=== PATIENT | male | born 1960 | race Caucasian/White ===

== ENCOUNTER → 2016-07-23 | Outpatient (CLI) | payer BC | LOC: GMAB 10:42 | PROVIDERS: ATTEND Family Medicine | DX: Z00.00 Encounter for general adult medical examination without abnormal findings (principal) ==

== ENCOUNTER 2016-10-22 05:56 | Day surgery (SDC) | payer BC ==
[~2016-10-22 05:56] MED LIST: LACTATED RINGERS 1,000 ML ONE
--- NOTE | 2016-10-22 09:49 | OP ---
DATE OF PROCEDURE: 10/22/16 PREOPERATIVE DIAGNOSIS: 1. 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 POSTOPERATIVE DIAGNOSIS: 1. Tattoo adjacent to polypectomy scar in descending colon without residual polyp. 2. Internal hemorrhoids. PROCEDURE: 1. Colonoscopy. SURGEON: Luigi Montague MD. SEDATION: Monitored anesthesia care. ESTIMATED BLOOD LOSS: 0 mL. PROCEDURE: Informed consent was obtained prior to sedation. The preprocedure cardiopulmonary assessment was satisfactory. The patient was brought to the Endoscopy Suite and placed in the left lateral decubitus position. He was then sedated by the anesthesia team. Digital rectal revealed no abnormalities. The tip of the Olympus colonoscope was inserted into the rectum and advanced under direct visualization to the terminal ileum. The presence of the cecum was identified by the appendiceal orifice and ileocecal valve. Upon reaching the cecum, the endoscope was slowly withdrawn from the patient with careful attention paid to the entire colonic mucosa for the identification of any small polyps or flat vascular lesions. Preparation of the colon was good. In the proximal descending colon, there was an area of tattooed colonic mucosa. Adjacent to this tattoo was a scar from prior polypectomy. This area was inspected extensively with both white light and narrow band imaging and there was no evidence of residual polyp. The endoscopic was withdrawn to the rectum where a retroflexed view of the anal verge showed small internal hemorrhoids. The endoscope was then withdrawn from the patient and the procedure terminated. RECOMMENDATION: 1. Discharge the patient home with escort. 2. Repeat colonoscopy in 5 years for surveillance. 3. Resume normal diet and activities. 4. Followup as needed in my office. #[id number] [facility]
[2016-10-22 10:56] VITALS: BP 125/79; TEMP 97.6; O2SAT 100
[2016-10-22] MEDS ORDERED: PROPOFOL 200 MG/20 ML VIAL IV ONE (12:00)
== END 2016-10-22 09:42 | disposition home or self-care (01) ==
LOC: AMB 05:56
PROVIDERS: ATTEND Internal Medicine Gastroenterology
DX: Z12.11 Encounter for screening for malignant neoplasm of colon (principal); K64.8 Other hemorrhoids; Z86.010 Personal history of colon polyps

== ENCOUNTER → 2017-05-20 | Outpatient (CLI) | payer BC | END | disposition home or self-care (01) | LOC: RESP 10:09 | PROVIDERS: ATTEND Family Medicine | DX: R00.2 Palpitations (principal) ==

== ENCOUNTER → 2017-08-28 | Outpatient (CLI) | payer BC ==
--- NOTE | 2017-08-29 08:30 | MRI ---
EXAM DESCRIPTION: Knee,Right: MRI. CLINICAL HISTORY: INSTABILITY OF RIGHT KNEE COMPARISON: None. TECHNIQUE: Multiplanar, high-field MRI, multiple sequences, without contrast: Right knee. FINDINGS: Minimal chondromalacia medial compartment. No subchondral edema. Intermediate signal in the anterior and posterior horns of the meniscus. Minimal effusion. Intermediate signal anterior and posterior horn lateral meniscus. Minimal chondromalacia but no subchondral edema. Medial and lateral marginal spurs. Minimal edema in the mid anterior segment of the anterior cruciate ligament. Normal signal in the posterior cruciate ligament. No fluid in the intercruciate space. Normal signal in the medial collateral ligament and elements of the lateral collateral ligament complex. No fluid or soft tissue mass posteriorly. No suprapatellar effusion. Intermediate signal in the distal quadriceps tendon. Minimal effusion in the lateral compartment in the infrapatellar fat pad. Patellar soft tissue restraints are unremarkable. Small ulcer in the medial patellar facet cartilage with no subchondral edema. IMPRESSION: 1. Almost full-thickness cartilage ulcer medial patellar facet. No subchondral edema. Edema in the infrapatellar fat pad extending from the lateral compartment. Degenerative signal in the quadriceps tendon. 2. Chondromalacia medial and lateral compartments. No subchondral lesion. Degenerative signal in the medial and lateral menisci but no tear. 3. Mild sprain anterior cruciate ligament. Electronically signed by: De Camilo MD 08/29/2017 8:29 AM NEWS ASSIGNMENT EDITOR Workstation: Pocketbook
== END ==
LOC: MRI 07:50
PROVIDERS: ATTEND Orthopaedic Surgery
DX: M25.361 Other instability, right knee (principal); M94.261 Chondromalacia, right knee; S83.511A Sprain of anterior cruciate ligament of right knee, initial encounter

== ENCOUNTER → 2019-01-11 | Outpatient (CLI) | payer BC | LOC: GMAJ 10:58 | PROVIDERS: ATTEND Family Medicine | DX: Z12.5 Encounter for screening for malignant neoplasm of prostate (principal); E78.2 Mixed hyperlipidemia ==

== ENCOUNTER → 2019-08-31 | Outpatient (CLI) | payer BC ==
--- NOTE | 2019-09-01 07:52 | MRI ---
Study: MRI of the Left Knee. Indication: other meniscus derangments Technique: Multiplanar, multi sequence MRI of the left knee was obtained without intravenous contrast. Comparison: None. Findings: Prior ACL graft repair with associated susceptibility artifact from the interference screws. Moderate mucoid degeneration of the graft noted with slight buckling of its mid substance along the posterior margin of the intercondylar notch. Impingement suspected at this site. Low-grade interstitial tearing of the distal insertional fibers. No acute transection. Mild intrasubstance cystic change of the proximal graft noted. In addition, moderate intraosseous cystic change along the proximal/posterior margin of the tibial tunnel measuring up to 13 mm. PCL, ACL, and lateral collateral ligament complex intact. Scattered degenerative signal change medial meniscus without tear. Grade 2 and 3 chondral thinning of the medial compartment. Degenerative signal throughout the lateral meniscus with significant volume loss of the anterior horn/root. Body extruded by 3 mm with mild free edge fraying. No fluid-filled tear. At the posterior weightbearing margin lateral femoral condyle is a 10 mm AP by 7 mm transverse site of irregular grade 3/4 chondrosis with moderate subchondral marrow change and mild button osteophyte formation. Additional areas of grade 2 and mild grade 3 chondral thinning throughout the lateral compartment. Quadriceps tendon intact. Post surgical changes patellar tendon without tear. Patellar located. Heterogeneous grade 3 chondrosis throughout the patella with mild areas of grade 4 chondrosis at the lateral facet where there is subchondral marrow change. Grade 2 chondrosis throughout the femoral trochlea. Small knee effusion. No acute fracture. Tiny tricompartmental joint line osteophytes. 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 No acute tear. Degenerative changes medial meniscus and lateral meniscus with slight extrusion and free edge fraying of the body lateral meniscus. No fluid-filled tear. Tricompartmental chondrosis, most pronounced at the posterior weightbearing aspects of the lateral femoral condyle there is grade 3/4 chondral loss as above. Small knee effusion. Electronically signed by: Live Tolentino MD 09/01/2019 7:50 AM RANGER AIDE
== END ==
LOC: MRI 10:50
PROVIDERS: ATTEND Family Medicine
DX: M23.304 Other meniscus derangements, unspecified medial meniscus, left knee (principal); M23.301 Other meniscus derangements, unspecified lateral meniscus, left knee; T84.490A Other mechanical complication of muscle and tendon graft, initial encounter; M22.42 Chondromalacia patellae, left knee; M25.462 Effusion, left knee

== ENCOUNTER → 2020-04-10 | Outpatient (CLI) | payer BC | LOC: GMAJ 10:22 | PROVIDERS: ATTEND Family Medicine | DX: Z12.5 Encounter for screening for malignant neoplasm of prostate (principal); E29.1 Testicular hypofunction ==